=== PATIENT | female | born 1990 ===

== ENCOUNTER 2018-03-03 07:31 | Outpatient (CLI) | payer BC ==
[2018-03-03] MEDS ORDERED: Gadobenate Dimeglumine 529 MG/1 ML (20ML VIAL) ONE (14:14)
== END 2018-03-03 07:32 | disposition home or self-care (01) ==
LOC: BICMRI 07:31
PROVIDERS: ATTEND Internal Medicine Rheumatology
DX: M45.7 Ankylosing spondylitis of lumbosacral region (principal)
CPT/HCPCS: 72197; A9579